=== PATIENT | male | born 1995 | race Two or more races ===

== ENCOUNTER 2017-07-08 01:48 | Inpatient (IN) | payer SELFPAY ==
[2017-07-08] VITALS (12 sets, daily range): BP systolic 108–144; BP diastolic 46–80
[~2017-07-08] VITALS: Ht 175.3 cm; Wt 86.2 kg
[2017-07-08] MEDS ORDERED: ONDANSETRON ODT 4 MG TAB.RAPDIS. PO ONE (02:15)
[2017-07-08] MEDS ORDERED: LIDO:MAALOX:DONNATAL 1:1:1 15 ML SINGLE DOSE SWSW ONE ×2 (02:30→02:45)
[2017-07-08] MEDS ORDERED: ONDANSETRON PF 4 MG/2 ML VIAL. ONE ×2 (02:31→09:04)
[2017-07-08 02:38] LABS: BASO # 0.1 x10^3/uL (0.0-0.2); BASO % 0 % (0-3); EOS % 1 % (0-3); HEMATOCRIT 44.3 % (39.0-53.0); HEMOGLOBIN 14.8 g/dL (13.0-17.5); LYMPH % 21 % (24-48); MEAN CORPUSCULAR HEMOGLOBIN 29 pg (25-35); MEAN CORPUSCULAR HGB CONC 33 g/dL (31-37); MEAN CORPUSCULAR VOLUME 87 fL (79-100); MONO % 7 % (0-9); NEUT % 71 % (31-73); PLATELET COUNT 263 x10^3/uL (140-400); RED BLOOD COUNT 5.07 x10^6/uL (4.30-5.70); RED CELL DISTRIBUTION WIDTH 13.3 % (11.5-14.5); WHITE BLOOD COUNT 13.8 x10^3/uL (4.0-11.0)
[2017-07-08] MEDS ORDERED: ONDANSETRON PF 4 MG/2 ML VIAL. IV ONE (02:45)
[2017-07-08] MEDS ORDERED: IV NORMAL SALINE 1000ML BAG 1,000 ML IV SCH (02:45)
[2017-07-08 02:46] LABS: CALCIUM 9.3 mg/dL (8.5-10.1); CREATININE 0.9 mg/dL (0.7-1.3); GFR 104.6; POTASSIUM 3.5 mmol/L (3.5-5.1)
--- NOTE | 2017-07-08 02:47 | PHYS DOC ---
Past Medical History Past Medical History: No Pertinent History Past Surgical History: No Surgical History Alcohol Use: None Drug Use: None Adult General Chief Complaint Chief Complaint: ABDOMINAL PAIN HPI HPI Patient is a 21 year old male who presents with complaint of upper abdominal pain and vomiting. Patient states that his symptoms started approximately 2 hours ago and have been persistent. Patient states that he had eaten [employer] earlier this evening and states proximal one hour after eating he started getting pain along the left side of his abdomen. Patient states this rapidly progressed into vomiting. The patient states currently he is having sharp pain in the middle upper portion of his abdomen. Patient has had numerous episodes of vomiting and has not been able to keep any fluids down. The patient currently rates his pain as 9 out of 10 on my evaluation. Patient denies any associated fevers and denies any known sick contacts. Patient denies any significant past medical history and has had no surgeries. Patient has not taken anything for his symptoms. Review of Systems Review of Systems Constitutional: Denies fever or chills [] Eyes: Denies change in visual acuity, redness, or eye pain [] HENT: Denies nasal congestion or sore throat [] Respiratory: Denies cough or shortness of breath [] Cardiovascular: Denies chest pain or edema[] GI: Abdominal pain, nausea, vomiting[] : Denies dysuria or hematuria [] Musculoskeletal: Denies back pain or joint pain [] Integument: Denies rash or skin lesions [] Neurologic: Denies headache, focal weakness or sensory changes [] All other systems were reviewed and found to be within normal limits, except as documented in this note. Current Medications Current Medications Current Medications Medications (Trade) Dose Ordered Sig/Chin Start Time Stop Time Status Last Admin Dose Admin Fentanyl Citrate (Fentanyl 2ml Vial) 50 mcg PRN Q15MIN PRN 07/08/17 02:45 07/09/17 02:44 07/08/17 05:49 50 MCG Info (Do NOT chart on this entry -- for MONITORING) 1 each PRN DAILY PRN 07/08/17 04:15 07/10/17 04:14 Iohexol (Omnipaque 300 Mg/ml) 75 ml 1X ONCE 07/08/17 04:15 07/08/17 04:16 DC 07/08/17 04:30 75 ML Multi-Ingredient Mouthwash/Gargle (Gi Cocktail Single Dose) 15 ml 1X ONCE 07/08/17 02:45 07/08/17 02:46 DC Ondansetron HCl (Zofran Odt) 8 mg 1X ONCE 07/08/17 02:15 07/08/17 02:16 Cancel Ondansetron HCl (Zofran) 4 mg 1X ONCE 07/08/17 02:45 07/08/17 02:46 DC 07/08/17 02:39 4 MG Sodium Chloride 1,000 ml @ 1,000 mls/hr Q1H 07/08/17 02:45 07/08/17 03:44 DC 07/08/17 02:38 1,000 MLS/HR Allergies Allergies Allergies Coded Allergies Type Severity Reaction Last Updated Verified No Known Drug Allergies 07/08/17 No Physical Exam Physical Exam Constitutional: Alert, afebrile, appears in moderate discomfort. [] HENT: Normocephalic, atraumatic, bilateral external ears normal, oropharynx moist, no oral exudates, nose normal. [] Eyes: PERRLA, EOMI, conjunctiva normal, no discharge. [] Neck: Normal range of motion, no tenderness, supple, no stridor. [] Cardiovascular:Heart rate regular rhythm, no murmur [] Lungs & Thorax: Bilateral breath sounds clear to auscultation [] Abdomen: Bowel sounds normal, soft, epigastric tenderness to palpation with guarding, no rebound tenderness, no masses, no pulsatile masses. [] Skin: Warm, dry, no erythema, no rash. [] Back: No tenderness, no CVA tenderness. [] Extremities: No tenderness, no cyanosis, no clubbing, ROM intact, no edema. [] Neurologic: Alert and oriented X 3, normal motor function, normal sensory function, no focal deficits noted. [] Current Patient Data Vital Signs Vital Signs Date Time Temp Pulse Resp B/P (MAP) Pulse Ox O2 Delivery O2 Flow Rate FiO2 07/08/17 04:29 86 22 132/67 (88) 97 Room Air 07/08/17 01:57 97.8 97.8 Lab Values Laboratory Tests Test 07/08/17 02:15 White Blood Count 13.8 x10^3/uL (4.0-11.0) H Red Blood Count 5.07 x10^6/uL (4.30-5.70) Hemoglobin 14.8 g/dL (13.0-17.5) Hematocrit 44.3 % (39.0-53.0) Mean Corpuscular Volume 87 fL (79-100) Mean Corpuscular Hemoglobin 29 pg (25-35) Mean Corpuscular Hemoglobin Concent 33 g/dL (31-37) Red Cell Distribution Width 13.3 % (11.5-14.5) Platelet Count 263 x10^3/uL (140-400) Neutrophils (%) (Auto) 71 % (31-73) Lymphocytes (%) (Auto) 21 % (24-48) L Monocytes (%) (Auto) 7 % (0-9) Eosinophils (%) (Auto) 1 % (0-3) Basophils (%) (Auto) 0 % (0-3) Neutrophils # (Auto) 9.8 x10^3uL (1.8-7.7) H Lymphocytes # (Auto) 3.0 x10^3/uL (1.0-4.8) Monocytes # (Auto) 1.0 x10^3/uL (0.0-1.1) Eosinophils # (Auto) 0.1 x10^3/uL (0.0-0.7) Basophils # (Auto) 0.1 x10^3/uL (0.0-0.2) Sodium Level 141 mmol/L (136-145) Potassium Level 3.5 mmol/L (3.5-5.1) Chloride Level 104 mmol/L (98-107) Carbon Dioxide Level 29 mmol/L (21-32) Anion Gap 8 (6-14) Blood Urea Nitrogen 16 mg/dL (8-26) Creatinine 0.9 mg/dL (0.7-1.3) Estimated GFR (Cockcroft-Gault) 104.6 BUN/Creatinine Ratio 18 (6-20) Glucose Level 118 mg/dL (70-99) H Calcium Level 9.3 mg/dL (8.5-10.1) Total Bilirubin 0.7 mg/dL (0.2-1.0) Aspartate Amino Transferase (AST) 19 U/L (15-37) Alanine Aminotransferase (ALT) 38 U/L (16-63) Alkaline Phosphatase 71 U/L (46-116) Total Protein 7.9 g/dL (6.4-8.2) Albumin 4.4 g/dL (3.4-5.0) Albumin/Globulin Ratio 1.3 (1.0-1.7) Lipase 99 U/L (73-393) Laboratory Tests 07/08/17 02:15 Laboratory Tests 07/08/17 02:15 EKG EKG Not performed[] Radiology/Procedures Radiology/Procedures [facility] [address] [place] [address] IMAGING REPORT Signed PATIENT: MUKESH GARCIA ACCOUNT: [id number] : 1995 LOCATION: ER AGE: 21 SEX: M EXAM STATUS: REG ER ORD. PHYSICIAN: DEBBY NARAYANAN MD REASON: upper abdominal pain PROCEDURE: CT ABD PELV W/ IV CONTRST ONLY INDICATION: upper abd pain after eating [employer] tonight; Omni 300, 75ml COMPARISON: None. TECHNIQUE: Axial CT images were obtained through the abdomen and pelvis with intravenous contrast. One or more of the following individualized dose reduction techniques were utilized for this examination: 1. Automated exposure control; 2. Adjustment of the mA and/or kV according to patient size; 3. Use of iterative reconstruction technique. FINDINGS: Chest Base: Partially imaged without gross abnormality. Vessels: No abdominal aortic aneurysm. Liver/Biliary: No intrahepatic biliary duct dilation. Pancreas: No peripancreatic edema. Spleen: Normal. Kidneys/Adrenal: No hydronephrosis. Bladder: Distended with urine at time of exam. GI: Blind-ending tubular structure right lower quadrant of the abdomen measuring approximately 12 mm with mild edema adjacent. This appears predominantly retrocecal in location IMPRESSION: 1. Findings concerning for early acute appendicitis. Please note the appendix is in a retrocecal location. Electronically signed by: Magy Cameron MD (07/08/2017 5:50 AM) [facility] DICTATED and SIGNED BY: MAGY CAMERON MD DATE: 07/08/17 0542 CC: DEBBY NARAYANAN MD; NO PCP ~ [] Course & Med Decision Making Course & Med Decision Making Pertinent Labs and Imaging studies reviewed. (See chart for details) Patient was given IV fluids, fentanyl, GI cocktail, and Zofran. Despite treatment the patient's pain did not improve. The patient thus underwent CT imaging. This CT scan showed a retrocecal early acute appendicitis. I spoke with Dr. Chen of general surgery who agreed to consult on patient in hospital and recommended that the patient be started on Zosyn which was done in the emergency department. Patient was admitted to Dr. Plascencia. Adriana Disclaimer Adriana Disclaimer This electronic medical record was generated, in whole or in part, using a voice recognition dictation system. Departure Departure Impression: Primary Impression: Acute appendicitis Disposition: 09 ADMITTED INPATIENT Admitting Physician: Milena Plascencia Condition: GUARDED Referrals: NO PCP (PCP) Problem Qualifiers Primary Impression: Acute appendicitis Acute appendicitis type: unspecified acute appendicitis type Qualified Codes : K35.80 - Unspecified acute appendicitis DEBBY NARAYANAN MD Jul 08, 2017 02:47
[2017-07-08 02:54] LABS: ALBUMIN 4.4 g/dL (3.4-5.0); ALBUMIN/GLOBULIN RATIO 1.3 (1.0-1.7); TOTAL BILIRUBIN 0.7 mg/dL (0.2-1.0); TOTAL PROTEIN 7.9 g/dL (6.4-8.2)
[2017-07-08] MEDS: fentaNYL PF VIAL 100 MCG/2 ML VIAL IV PRN ×3 (02:55→05:49)
[2017-07-08] MEDS ORDERED: CONTRAST GIVEN MC PRN (04:15)
[2017-07-08] MEDS ORDERED: IOHEXOL 300 MG/ML 100ML VIAL. IV ONE (04:15)
--- NOTE | 2017-07-08 05:54 | RAD ---
INDICATION: upper abd pain after eating [employer] tonight; Omni 300, 75ml COMPARISON: None. TECHNIQUE: Axial CT images were obtained through the abdomen and pelvis with intravenous contrast. One or more of the following individualized dose reduction techniques were utilized for this examination: 1. Automated exposure control; 2. Adjustment of the mA and/or kV according to patient size; 3. Use of iterative reconstruction technique. FINDINGS: Chest Base: Partially imaged without gross abnormality. Vessels: No abdominal aortic aneurysm. Liver/Biliary: No intrahepatic biliary duct dilation. Pancreas: No peripancreatic edema. Spleen: Normal. Kidneys/Adrenal: No hydronephrosis. Bladder: Distended with urine at time of exam. GI: Blind-ending tubular structure right lower quadrant of the abdomen measuring approximately 12 mm with mild edema adjacent. This appears predominantly retrocecal in location IMPRESSION: 1. Findings concerning for early acute appendicitis. Please note the appendix is in a retrocecal location. Electronically signed by: David Holloway MD (07/08/2017 5:50 AM) [facility]
[2017-07-08] MEDS ORDERED: fentaNYL PF VIAL 100 MCG/2 ML VIAL IV PRN ×6 (06:45→08:15)
[2017-07-08] MEDS ORDERED: ONDANSETRON PF 4 MG/2 ML VIAL. IV PRN ×3 (06:45→11:00)
[2017-07-08] MEDS: IV NORMAL SALINE 1000ML BAG 1,000 ML IV SCH ×3 (07:23→22:45)
[2017-07-08] MEDS ORDERED: MIDAZOLAM HCL/PF 2 MG/2 ML VIAL. IV PRN (08:15)
[2017-07-08] MEDS ORDERED: LIDOCAINE 1% PF 2 ML VIAL. ID PRN ×2 (08:15)
[2017-07-08] MEDS ORDERED: IV RINGERS,LACTATED 1000ML 1,000 ML IV SCH (08:15)
[2017-07-08] MEDS: IV RINGERS,LACTATED 1000ML 1,000 ML IV SCH ×2 (08:15→16:15)
[2017-07-08] MEDS ORDERED: HYDROmorphone 2 MG/ML VIAL IV PRN (08:15)
[2017-07-08] MEDS ORDERED: PROCHLORPERAZINE 10 MG/2 ML VIAL. IV PRN (08:15)
[2017-07-08] MEDS ORDERED: MORPHINE SULFATE 2 MG/ML DISP.SYRIN. IV PRN (08:15)
--- NOTE | 2017-07-08 08:24 | PDOC1 ---
History and Physical Date of Admission Date of Admission DATE: 07/08/17 TIME: 08:21 Identification/Chief Complaint Chief Complaint Abd pain Problems: Source Source: Patient History of Present Illness History of Present Illness 21 yo male with 12 hour history of abdominal pain RLQ. Has had nausea but no vomiting Past Medical History Cardiovascular: No pertinent hx Pulmonary: No pertinent hx GI: No pertinent hx Heme/Onc: No pertinent hx Hepatobiliary: No pertinent hx Psych: No pertinent hx Rheumatologic: No pertinent hx Infectious disease: No pertinent hx ENT: No pertinent hx Renal/: No pertinent hx Endocrine: No pertinent hx Dermatology: No pertinent hx Past Surgical History Past Surgical History: No pertinent history Family History Family History: No Significant Social History Smoke: No ALCOHOL: rare Drugs: None Current Problem List Problem List Problems Medical Problems: (1) Acute appendicitis Status: Acute Problems: Current Medications Current Medications Current Medications Ondansetron HCl (Zofran Odt) 8 mg 1X ONCE PO ; Start 07/08/17 at 02:15; Stop 07/08/17 at 02:16; Status Cancel Multi-Ingredient Mouthwash/Gargle (Gi Cocktail Single Dose) 15 ml 1X ONCE SWSW Last administered on 07/08/17 02:55; Start 07/08/17 at 02:30; Stop 07/08/17 at 02:31; Status DC Ondansetron HCl (Zofran) 4 mg STK-MED ONCE .ROUTE ; Start 07/08/17 at 02:31; Stop 07/08/17 at 02:32; Status DC Multi-Ingredient Mouthwash/Gargle (Gi Cocktail Single Dose) 15 ml 1X ONCE SWSW ; Start 07/08/17 at 02:45; Stop 07/08/17 at 02:46; Status DC Sodium Chloride 1,000 ml @ 1,000 mls/hr Q1H IV Last administered on 07/08/17 02:38; Start 07/08/17 at 02:45; Stop 07/08/17 at 03:44; Status DC Ondansetron HCl (Zofran) 4 mg 1X ONCE IV Last administered on 07/08/17 02:39 ; Start 07/08/17 at 02:45; Stop 07/08/17 at 02:46; Status DC Fentanyl Citrate (Fentanyl 2ml Vial) 50 mcg PRN Q15MIN PRN IV PAIN GREATER THAN 3/10 Last administered on 07/08/17 05:49; Start 07/08/17 at 02:45; Stop 07/09/17 at 02:44 Iohexol (Omnipaque 300 Mg/ml) 75 ml 1X ONCE IV Last administered on 07/08/17 04:30; Start 07/08/17 at 04:15; Stop 07/08/17 at 04:16; Status DC Info (Do NOT chart on this entry -- for MONITORING) 1 each PRN DAILY PRN MC SEE COMMENTS; Start 07/08/17 at 04:15; Stop 07/10/17 at 04:14 Ondansetron HCl (Zofran) 4 mg PRN Q8HRS PRN IV NAUSEA/VOMITING; Start 07/08/17 at 06:45; Stop 07/09/17 at 06:44 Fentanyl Citrate (Fentanyl 2ml Vial) 50 mcg PRN Q2HR PRN IV PAIN; Start at 06:45; Stop 07/09/17 at 06:44 Sodium Chloride 1,000 ml @ 125 mls/hr Q8H IV Last administered on 07/08/17 07 :23; Start 07/08/17 at 06:45; Stop 07/09/17 at 06:44 Midazolam HCl (Versed) 2 mg PRN 1X PRN IV PRIOR TO PROCEDURE; Start 07/08/17 at 08:15; Stop 07/09/17 at 08:14; Status UNV Fentanyl Citrate (Fentanyl 2ml Vial) 25 mcg PRN Q5MIN PRN IV X 2 DOSES FOR PAIN ; Start 07/08/17 at 08:15; Stop 07/09/17 at 08:14; Status UNV Fentanyl Citrate (Fentanyl 2ml Vial) 50 mcg PRN Q5MIN PRN IV X 2 DOSES FOR PAIN ; Start 07/08/17 at 08:15; Stop 07/09/17 at 08:14; Status UNV Ringer's Solution 1,000 ml @ 125 mls/hr Q8H IV ; Start 07/08/17 at 08:15; Stop 07/08/17 at 20:14; Status UNV Lidocaine HCl (Xylocaine-Mpf 1% Vial) 2 ml 1X PRN PRN ID IV START; Start at 08:15; Stop 07/09/17 at 08:14; Status UNV Ondansetron HCl (Zofran) 4 mg PRN Q6HRS PRN IV NAUSEA/VOMITING; Start 07/08/17 at 08:15; Stop 07/09/17 at 08:14; Status UNV Fentanyl Citrate (Fentanyl 2ml Vial) 25 mcg PRN Q5MIN PRN IV MILD PAIN; Start 07/08/17 at 08:15; Stop 07/09/17 at 08:14; Status UNV Fentanyl Citrate (Fentanyl 2ml Vial) 50 mcg PRN Q5MIN PRN IV MODERATE PAIN; Start 07/08/17 at 08:15; Stop 07/09/17 at 08:14; Status UNV Morphine Sulfate 1 mg PRN Q10MIN PRN IV SEVERE PAIN; Start 07/08/17 at 08:15; Stop 07/09/17 at 08:14; Status UNV Ringer's Solution 1,000 ml @ 30 mls/hr Q24H IV ; Start 07/08/17 at 08:15; Stop 07/08/17 at 20:14; Status UNV Lidocaine HCl (Xylocaine-Mpf 1% Vial) 2 ml 1X PRN PRN ID IV START; Start at 08:15; Stop 07/09/17 at 08:14; Status UNV Hydromorphone HCl (Dilaudid) 0.5 mg PRN Q10MIN PRN IV SEV PAIN, Second choice; Start 07/08/17 at 08:15; Stop 07/09/17 at 08:14; Status UNV Prochlorperazine Edisylate (Compazine) 5 mg PACU PRN PRN IV NAUSEA, MRX1; Start 07/08/17 at 08:15; Stop 07/09/17 at 08:14; Status UNV Fentanyl Citrate (Fentanyl 2ml Vial) 50 mcg PACU PRN PRN IV PAIN; Start at 08:00; Status UNV Piperacillin Sod/ Tazobactam Sod 3.375 gm/Dextrose 50 ml @ 100 mls/hr 1X ONCE IV ; Start 07/08/17 at 08:30; Stop 07/08/17 at 08:59; Status UNV Allergies Allergies: Coded Allergies: No Known Drug Allergies (Unverified , 07/08/17) ROS Gastrointestinal: Yes Nausea, Yes Abdominal Pain Physical Exam General: Alert, Oriented X3, Cooperative, mild distress HEENT: Atraumatic, EOMI Lungs: Clear to auscultation, Normal air movement Heart: RRR, no murmurs Abdomen: Normal bowel sounds, Soft, Other (TTP RLQ) Rectal Exam: not examined Extremities: No clubbing, No cyanosis, No edema Skin: No significant lesion Neuro: Normal speech Psych/Mental Status: Mental status NL Vitals Vitals Vital Signs Date Time Temp Pulse Resp B/P (MAP) Pulse Ox O2 Delivery O2 Flow Rate FiO2 07/08/17 07:58 98.3 89 24 140/69 98 Room Air 98.3 Labs Labs Laboratory Tests Test 07/08/17 02:15 White Blood Count 13.8 x10^3/uL (4.0-11.0) Red Blood Count 5.07 x10^6/uL (4.30-5.70) Hemoglobin 14.8 g/dL (13.0-17.5) Hematocrit 44.3 % (39.0-53.0) Mean Corpuscular Volume 87 fL (79-100) Mean Corpuscular Hemoglobin 29 pg (25-35) Mean Corpuscular Hemoglobin Concent 33 g/dL (31-37) Red Cell Distribution Width 13.3 % (11.5-14.5) Platelet Count 263 x10^3/uL (140-400) Neutrophils (%) (Auto) 71 % (31-73) Lymphocytes (%) (Auto) 21 % (24-48) Monocytes (%) (Auto) 7 % (0-9) Eosinophils (%) (Auto) 1 % (0-3) Basophils (%) (Auto) 0 % (0-3) Neutrophils # (Auto) 9.8 x10^3uL (1.8-7.7) Lymphocytes # (Auto) 3.0 x10^3/uL (1.0-4.8) Monocytes # (Auto) 1.0 x10^3/uL (0.0-1.1) Eosinophils # (Auto) 0.1 x10^3/uL (0.0-0.7) Basophils # (Auto) 0.1 x10^3/uL (0.0-0.2) Sodium Level 141 mmol/L (136-145) Potassium Level 3.5 mmol/L (3.5-5.1) Chloride Level 104 mmol/L (98-107) Carbon Dioxide Level 29 mmol/L (21-32) Anion Gap 8 (6-14) Blood Urea Nitrogen 16 mg/dL (8-26) Creatinine 0.9 mg/dL (0.7-1.3) Estimated GFR (Cockcroft-Gault) 104.6 BUN/Creatinine Ratio 18 (6-20) Glucose Level 118 mg/dL (70-99) Calcium Level 9.3 mg/dL (8.5-10.1) Total Bilirubin 0.7 mg/dL (0.2-1.0) Aspartate Amino Transf (AST/SGOT) 19 U/L (15-37) Alanine Aminotransferase (ALT/SGPT) 38 U/L (16-63) Alkaline Phosphatase 71 U/L (46-116) Total Protein 7.9 g/dL (6.4-8.2) Albumin 4.4 g/dL (3.4-5.0) Albumin/Globulin Ratio 1.3 (1.0-1.7) Lipase 99 U/L (73-393) Laboratory Tests Test 07/08/17 02:15 White Blood Count 13.8 x10^3/uL (4.0-11.0) Red Blood Count 5.07 x10^6/uL (4.30-5.70) Hemoglobin 14.8 g/dL (13.0-17.5) Hematocrit 44.3 % (39.0-53.0) Mean Corpuscular Volume 87 fL (79-100) Mean Corpuscular Hemoglobin 29 pg (25-35) Mean Corpuscular Hemoglobin Concent 33 g/dL (31-37) Red Cell Distribution Width 13.3 % (11.5-14.5) Platelet Count 263 x10^3/uL (140-400) Neutrophils (%) (Auto) 71 % (31-73) Lymphocytes (%) (Auto) 21 % (24-48) Monocytes (%) (Auto) 7 % (0-9) Eosinophils (%) (Auto) 1 % (0-3) Basophils (%) (Auto) 0 % (0-3) Neutrophils # (Auto) 9.8 x10^3uL (1.8-7.7) Lymphocytes # (Auto) 3.0 x10^3/uL (1.0-4.8) Monocytes # (Auto) 1.0 x10^3/uL (0.0-1.1) Eosinophils # (Auto) 0.1 x10^3/uL (0.0-0.7) Basophils # (Auto) 0.1 x10^3/uL (0.0-0.2) Sodium Level 141 mmol/L (136-145) Potassium Level 3.5 mmol/L (3.5-5.1) Chloride Level 104 mmol/L (98-107) Carbon Dioxide Level 29 mmol/L (21-32) Anion Gap 8 (6-14) Blood Urea Nitrogen 16 mg/dL (8-26) Creatinine 0.9 mg/dL (0.7-1.3) Estimated GFR (Cockcroft-Gault) 104.6 BUN/Creatinine Ratio 18 (6-20) Glucose Level 118 mg/dL (70-99) Calcium Level 9.3 mg/dL (8.5-10.1) Total Bilirubin 0.7 mg/dL (0.2-1.0) Aspartate Amino Transf (AST/SGOT) 19 U/L (15-37) Alanine Aminotransferase (ALT/SGPT) 38 U/L (16-63) Alkaline Phosphatase 71 U/L (46-116) Total Protein 7.9 g/dL (6.4-8.2) Albumin 4.4 g/dL (3.4-5.0) Albumin/Globulin Ratio 1.3 (1.0-1.7) Lipase 99 U/L (73-393) Images Images CT of the abd showing inflammed appendix no abscess VTE Prophylaxis Ordered VTE Prophylaxis Devices: Yes VTE Pharmacological Prophylaxi: Contraindicated Assessment/Plan Assessment/Plan Acute appendicitis Plan L/S Appendectomy WILFRIDO SILVA MD Jul 08, 2017 8:24 am
[2017-07-08] MEDS ORDERED: PIPERACILLIN/TAZO IV Push 3.375 GM VIAL. IVP ONE (08:30)
[2017-07-08] MEDS ORDERED: PIPERACILLIN/TAZOBACTAM 3.375 GM in IV DEXTROSE 5% 50 ML IV ONE (08:30)
[2017-07-08] MEDS ORDERED: ROCURONIUM 50 MG/5 ML VIAL. ONE (09:03)
[2017-07-08] MEDS ORDERED: SEVOFLURANE 61 TO 120 MINUTES. IH ONE (09:04)
[2017-07-08] MEDS ORDERED: KETOROLAC 30 MG/ML INJ FOR OR. INJ ONE (09:04)
[2017-07-08] MEDS ORDERED: DEXAMETHASONE SOD PHOS 20 MG/5 ML VIAL. ONE (09:04)
[2017-07-08] MEDS ORDERED: fentaNYL PF VIAL 100 MCG/2 ML VIAL ONE (09:04)
[2017-07-08] MEDS ORDERED: LIDOCAINE 2% PF Vial for OR 5 ML VIAL. ONE (09:04)
[2017-07-08] MEDS ORDERED: PROPOFOL 20 ML IV ONE (09:04)
[2017-07-08] MEDS ORDERED: MIDAZOLAM HCL/PF 2 MG/2 ML VIAL. ONE (09:04)
[2017-07-08] MEDS ORDERED: BUPIVACAINE-EPI 0.25%-1:200000 50 ML VIAL. ONE (09:38)
[2017-07-08] MEDS ORDERED: MORPHINE SULFATE 10 MG/ML VIAL. ONE (10:12)
--- NOTE | 2017-07-08 10:46 | PDOC4 ---
Operative Note Operative Note Date: 07/08/2017 Preoperative diagnosis: Acute appendicitis Postoperative diagnosis: Same Procedure: Laparoscopic appendectomy Surgeon: Gustavo Specimen: Appendix Dictation: Patient is a 21-year-old male was met in the hospital with right lower quadrant abdominal pain and CT scan findings consistent with acute appendicitis. Procedure lap scopic appendectomy was explained to the patient detail was benefits were also discussed including bleeding infection injury to intra-abdominal contents possibly necessitating further or open operations. The patient seemed understanding gave both verbal and written consent to have the procedure performed. Patient was taken to the operating room placed the supine position general anesthesia was initiated once patient was asleep and intubated his abdomen was prepped and draped usual sterile fashion using ChloraPrep. An area at the umbilicus was injected with quarter percent Marcaine with epinephrine incisions made lead blade scalpel varies needle was placed within the abdomen and a pneumoperitoneum was achieved once this complete a 12 mm port was placed in fibromata camera was placed within the abdomen abdomen was inspected no other at maladies were noted was noted to appendix was inflamed and adherent to the lateral abdominal wall. I'm OmegaPort's were placed under direct visualization the appendix was grasped retracted towards anterior abdominal wall a window was propagated at the base the appendix through the mesoappendix with a [place] dissector and Endo JACOB stapler was used to staple and transect the base the appendix. The tip of the appendix was adherent to the lateral abdominal wall these adhesions were taken down with sharp dissection. The mesoappendix was stapled and transected with an Endo JACOB stapler. There was one small bleeder along the staple line and this was clipped with a 10 mm clip. The appendix was then placed in Endo Catch bag and removed from the umbilicus the right lower quadrant right abdominal gutter were all irrigated and suctioned dry hemostasis didn't be appropriate at that time and the pneumoperitoneum was reduced all ports removed fascial defect at the umbilicus closed [id number] Vicryl suture and skin was repacked made all port sites 4 septic or Monocryl Mastisol Steri-Strips and Band-Aids were applied as dressings. The patient was waken expanded in the operating room taken recovery in stable condition all sponge instrument needle counts listed as correct estimated blood loss 20 mL. WILFRIDO SILVA MD Jul 08, 2017 10:46
[2017-07-08] MEDS ORDERED: oxyCODONE/APAP 5/325 1 TAB TABLET PO PRN (11:00)
[2017-07-08] MEDS: KETOROLAC 15 MG/ML VIAL. IV SCH ×2 (12:00→18:29)
--- NOTE | 2017-07-08 12:33 | PDOC1 ---
History and Physical Date of Admission Date of Admission 07/08/17 Identification/Chief Complaint Chief Complaint abdominal pain Problems: Source Source: Patient History of Present Illness History of Present Illness This is a 21 y/o M who presented to the ER with acute abdominal pain. He was found to have acute appendicitis. General surgery was consulted, and his appendix was removed this morning. He has returned from the OR. Pain is currently 3-4/10. He denies any chest pain or nausea since the surgery. He hasn' t eaten yet. He does not take any medications at home. Past Medical History Cardiovascular: No pertinent hx Pulmonary: No pertinent hx GI: No pertinent hx Heme/Onc: No pertinent hx Hepatobiliary: No pertinent hx Psych: No pertinent hx Rheumatologic: No pertinent hx Infectious disease: No pertinent hx ENT: No pertinent hx Renal/: No pertinent hx Endocrine: No pertinent hx Dermatology: No pertinent hx Past Surgical History Past Surgical History: No pertinent history Family History Family History: No Significant Social History Smoke: No ALCOHOL: rare Drugs: None Current Problem List Problem List Problems Medical Problems: (1) Acute appendicitis Status: Acute Current Medications Current Medications Current Medications Medications (Trade) Dose Ordered Sig/Chin Start Time Stop Time Status Last Admin Dose Admin Bupivacaine HCl/ Epinephrine Bitart (Marcaine-Epi 0.25%-[id number]) 50 ml STK-MED ONCE 07/08/17 09:38 07/08/17 09:39 DC 07/08/17 10:04 10 ML Dexamethasone Sodium Phosphate (Decadron) 20 mg STK-MED ONCE 07/08/17 09:04 07/08/17 09:05 DC Fentanyl Citrate (Fentanyl 2ml Vial) 100 mcg STK-MED ONCE 07/08/17 09:04 07/08/17 09:05 DC Hydromorphone HCl (Dilaudid) 0.5 mg PRN Q10MIN PRN 07/08/17 08:15 07/09/17 08:14 Info (Do NOT chart on this entry -- for MONITORING) 1 each PRN DAILY PRN 07/08/17 04:15 07/10/17 04:14 Iohexol (Omnipaque 300 Mg/ml) 75 ml 1X ONCE 07/08/17 04:15 07/08/17 04:16 DC 07/08/17 04:30 75 ML Ketorolac Tromethamine (Toradol For Or Only) 30 mg STK-MED ONCE 07/08/17 09:04 07/08/17 09:05 DC Ketorolac Tromethamine (Toradol) 15 mg Q6HRS 07/08/17 12:00 07/10/17 11:59 Lidocaine HCl (Lidocaine Pf 2% Vial) 5 ml STK-MED ONCE 07/08/17 09:04 07/08/17 09:05 DC Lidocaine HCl (Xylocaine-Mpf 1% Vial) 2 ml 1X PRN PRN 07/08/17 08:15 07/09/17 08:14 Midazolam HCl (Versed) 2 mg STK-MED ONCE 07/08/17 09:04 07/08/17 09:05 DC Morphine Sulfate 10 mg STK-MED ONCE 07/08/17 10:12 07/08/17 10:13 DC Multi-Ingredient Mouthwash/Gargle (Gi Cocktail Single Dose) 15 ml 1X ONCE 07/08/17 02:45 07/08/17 02:46 DC Ondansetron HCl (Zofran Odt) 8 mg 1X ONCE 07/08/17 02:15 07/08/17 02:16 Cancel Ondansetron HCl (Zofran) 4 mg PRN Q6HRS PRN 07/08/17 11:00 Oxycodone/ Acetaminophen (Percocet 5/325) 2 tab PRN Q4HRS PRN 07/08/17 11:00 Piperacillin Sod/ Tazobactam Sod (Zosyn) 3.375 gm 1X ONCE 07/08/17 08:30 07/08/17 08:31 DC 07/08/17 08:32 3.375 GM Piperacillin Sod/ Tazobactam Sod 3.375 gm/Dextrose 50 ml @ 100 mls/hr 1X ONCE 07/08/17 08:30 07/08/17 08:59 UNV Prochlorperazine Edisylate (Compazine) 5 mg PACU PRN PRN 07/08/17 08:15 07/09/17 08:14 Propofol 20 ml @ As Directed STK-MED ONCE 07/08/17 09:04 07/08/17 09:05 DC Ringer's Solution 1,000 ml @ 30 mls/hr Q24H 07/08/17 08:15 07/08/17 20:14 Rocuronium [place] (Zemuron) 50 mg STK-MED ONCE 07/08/17 09:03 07/08/17 09:04 DC Sevoflurane (Ultane) 60 ml STK-MED ONCE 07/08/17 09:04 07/08/17 09:05 DC Sodium Chloride 1,000 ml @ 125 mls/hr Q8H 07/08/17 06:45 07/09/17 06:44 07/08/17 07:23 125 MLS/HR Allergies Allergies Allergies Coded Allergies Type Severity Reaction Last Updated Verified No Known Drug Allergies 07/08/17 No ROS Review of System CONSTITUTIONAL: No fever or chills EYES: No recent changes SKIN: No rash or itching CARDIOVASCULAR: No chest pain, syncope, palpitations, or edema RESPIRATORY: No SOB or cough GASTROINTESTINAL: +abdominal pain, periumbilical NEUROLOGICAL: No headaches or weakness ENDOCRINE: No cold or heat intolerance GENITOURINARY: No urgency or frequency of urination MUSCULOSKELETAL: No back pain or joint pain LYMPHATICS: No enlarged lymph nodes PSYCHIATRIC: No anxiety or depression Physical Exam Physical Exam GEN.: No apparent distress. groggy HEENT: Head is normocephalic, atraumatic NECK: Supple. LUNGS: Clear to auscultation. HEART: RRR, S1, S2 present. ABDOMEN: slight distention, 4 small dressings are c/d/i EXTREMITIES: Without any cyanosis. NEUROLOGIC: Normal speech, normal tone PSYCHIATRIC: Normal affect, normal mood. SKIN: No ulcerations Vitals Vitals Vital Signs Date Time Temp Pulse Resp B/P (MAP) Pulse Ox O2 Delivery O2 Flow Rate FiO2 07/08/17 11:57 97.9 89 18 114/46 (68) 98 Room Air 97.9 07/08/17 11:02 10 Labs Labs Laboratory Tests Test 07/08/17 02:15 White Blood Count 13.8 x10^3/uL (4.0-11.0) Red Blood Count 5.07 x10^6/uL (4.30-5.70) Hemoglobin 14.8 g/dL (13.0-17.5) Hematocrit 44.3 % (39.0-53.0) Mean Corpuscular Volume 87 fL (79-100) Mean Corpuscular Hemoglobin 29 pg (25-35) Mean Corpuscular Hemoglobin Concent 33 g/dL (31-37) Red Cell Distribution Width 13.3 % (11.5-14.5) Platelet Count 263 x10^3/uL (140-400) Neutrophils (%) (Auto) 71 % (31-73) Lymphocytes (%) (Auto) 21 % (24-48) Monocytes (%) (Auto) 7 % (0-9) Eosinophils (%) (Auto) 1 % (0-3) Basophils (%) (Auto) 0 % (0-3) Neutrophils # (Auto) 9.8 x10^3uL (1.8-7.7) Lymphocytes # (Auto) 3.0 x10^3/uL (1.0-4.8) Monocytes # (Auto) 1.0 x10^3/uL (0.0-1.1) Eosinophils # (Auto) 0.1 x10^3/uL (0.0-0.7) Basophils # (Auto) 0.1 x10^3/uL (0.0-0.2) Sodium Level 141 mmol/L (136-145) Potassium Level 3.5 mmol/L (3.5-5.1) Chloride Level 104 mmol/L (98-107) Carbon Dioxide Level 29 mmol/L (21-32) Anion Gap 8 (6-14) Blood Urea Nitrogen 16 mg/dL (8-26) Creatinine 0.9 mg/dL (0.7-1.3) Estimated GFR (Cockcroft-Gault) 104.6 BUN/Creatinine Ratio 18 (6-20) Glucose Level 118 mg/dL (70-99) Calcium Level 9.3 mg/dL (8.5-10.1) Total Bilirubin 0.7 mg/dL (0.2-1.0) Aspartate Amino Transf (AST/SGOT) 19 U/L (15-37) Alanine Aminotransferase (ALT/SGPT) 38 U/L (16-63) Alkaline Phosphatase 71 U/L (46-116) Total Protein 7.9 g/dL (6.4-8.2) Albumin 4.4 g/dL (3.4-5.0) Albumin/Globulin Ratio 1.3 (1.0-1.7) Lipase 99 U/L (73-393) Laboratory Tests Test 07/08/17 02:15 White Blood Count 13.8 x10^3/uL (4.0-11.0) Red Blood Count 5.07 x10^6/uL (4.30-5.70) Hemoglobin 14.8 g/dL (13.0-17.5) Hematocrit 44.3 % (39.0-53.0) Mean Corpuscular Volume 87 fL (79-100) Mean Corpuscular Hemoglobin 29 pg (25-35) Mean Corpuscular Hemoglobin Concent 33 g/dL (31-37) Red Cell Distribution Width 13.3 % (11.5-14.5) Platelet Count 263 x10^3/uL (140-400) Neutrophils (%) (Auto) 71 % (31-73) Lymphocytes (%) (Auto) 21 % (24-48) Monocytes (%) (Auto) 7 % (0-9) Eosinophils (%) (Auto) 1 % (0-3) Basophils (%) (Auto) 0 % (0-3) Neutrophils # (Auto) 9.8 x10^3uL (1.8-7.7) Lymphocytes # (Auto) 3.0 x10^3/uL (1.0-4.8) Monocytes # (Auto) 1.0 x10^3/uL (0.0-1.1) Eosinophils # (Auto) 0.1 x10^3/uL (0.0-0.7) Basophils # (Auto) 0.1 x10^3/uL (0.0-0.2) Sodium Level 141 mmol/L (136-145) Potassium Level 3.5 mmol/L (3.5-5.1) Chloride Level 104 mmol/L (98-107) Carbon Dioxide Level 29 mmol/L (21-32) Anion Gap 8 (6-14) Blood Urea Nitrogen 16 mg/dL (8-26) Creatinine 0.9 mg/dL (0.7-1.3) Estimated GFR (Cockcroft-Gault) 104.6 BUN/Creatinine Ratio 18 (6-20) Glucose Level 118 mg/dL (70-99) Calcium Level 9.3 mg/dL (8.5-10.1) Total Bilirubin 0.7 mg/dL (0.2-1.0) Aspartate Amino Transf (AST/SGOT) 19 U/L (15-37) Alanine Aminotransferase (ALT/SGPT) 38 U/L (16-63) Alkaline Phosphatase 71 U/L (46-116) Total Protein 7.9 g/dL (6.4-8.2) Albumin 4.4 g/dL (3.4-5.0) Albumin/Globulin Ratio 1.3 (1.0-1.7) Lipase 99 U/L (73-393) VTE Prophylaxis Ordered VTE Prophylaxis Devices: Yes VTE Pharmacological Prophylaxi: No Assessment/Plan Assessment/Plan Acute abdominal pain Acute appendicitis Leukocytosis Plan: s/p appendectomy POD 0 continue inpt care for post-op care, pain control, vitals monitoring, and repeat labs in the AM to ensure trend down in WBCs diet per surgeon anticipate discharge home tomorrow d/w nurse GASTON VALENTE MD Jul 08, 2017 12:33
[2017-07-08] MEDS: oxyCODONE/APAP 5/325 1 TAB TABLET PO PRN (14:37)
[2017-07-08] MEDS ORDERED: IV NORMAL SALINE 500ML BAG 500 ML IV ONE (15:30)
[2017-07-09] MEDS: oxyCODONE/APAP 5/325 1 TAB TABLET PO PRN ×2 (02:57→08:22)
[2017-07-09 03:31] VITALS: BP 97/67
[2017-07-09 05:20] LABS: BASO % 0 % (0-3); EOS % 0 % (0-3); HEMATOCRIT 29.7 % (39.0-53.0); HEMOGLOBIN 9.9 g/dL (13.0-17.5); LYMPH # 2.3 x10^3/uL (1.0-4.8); LYMPH % 20 % (24-48); MEAN CORPUSCULAR HEMOGLOBIN 29 pg (25-35); MEAN CORPUSCULAR HGB CONC 33 g/dL (31-37); MEAN CORPUSCULAR VOLUME 88 fL (79-100); MONO % 9 % (0-9); NEUT % 70 % (31-73); PLATELET COUNT 222 x10^3/uL (140-400); RED BLOOD COUNT 3.37 x10^6/uL (4.30-5.70); RED CELL DISTRIBUTION WIDTH 13.6 % (11.5-14.5); WHITE BLOOD COUNT 11.2 x10^3/uL (4.0-11.0)
[2017-07-09 05:53] LABS: CALCIUM 8.2 mg/dL (8.5-10.1); CREATININE 0.8 mg/dL (0.7-1.3); GFR 119.8; POTASSIUM 3.5 mmol/L (3.5-5.1)
[2017-07-09] MEDS: KETOROLAC 15 MG/ML VIAL. IV SCH ×3 (06:00→12:18)
[2017-07-09 07:00] VITALS: BP 132/60
--- NOTE | 2017-07-09 09:52 | PDOC ---
PROGRESS NOTES Subjective Subjective doing well, feeling better Objective Objective Vital Signs Date Time Temp Pulse Resp B/P (MAP) Pulse Ox O2 Delivery O2 Flow Rate FiO2 07/09/17 08:22 20 99 Room Air 07/09/17 07:00 97.7 98 132/60 (84) 97.7 07/08/17 11:02 10 Intake and Output 07/09/17 07:00 Intake Total 3300 ml Output Total 1950 ml Balance 1350 ml Intake Oral 1600 ml IV Total 1700 ml Output Urine Total 1900 ml Estimated Blood Loss 50 ml # Voids 5 Physical Exam Physical Exam abdomen soft Assessment Assessment Problems Medical Problems: (1) Acute appendicitis Status: Acute Plan Plan of Care OK to discharge, FU with Dr Chen in 2 weeks Comment Review of Relevant I have reviewed the following items beau (where applicable) has been applied. Labs Laboratory Tests Test 07/08/17 02:15 07/09/17 04:00 07/09/17 04:20 White Blood Count 13.8 x10^3/uL (4.0-11.0) 11.2 x10^3/uL (4.0-11.0) Red Blood Count 5.07 x10^6/uL (4.30-5.70) 3.37 x10^6/uL (4.30-5.70) Hemoglobin 14.8 g/dL (13.0-17.5) 9.9 g/dL (13.0-17.5) Hematocrit 44.3 % (39.0-53.0) 29.7 % (39.0-53.0) Mean Corpuscular Volume 87 fL (79-100) 88 fL (79-100) Mean Corpuscular Hemoglobin 29 pg (25-35) 29 pg (25-35) Mean Corpuscular Hemoglobin Concent 33 g/dL (31-37) 33 g/dL (31-37) Red Cell Distribution Width 13.3 % (11.5-14.5) 13.6 % (11.5-14.5) Platelet Count 263 x10^3/uL (140-400) 222 x10^3/uL (140-400) Neutrophils (%) (Auto) 71 % (31-73) 70 % (31-73) Lymphocytes (%) (Auto) 21 % (24-48) 20 % (24-48) Monocytes (%) (Auto) 7 % (0-9) 9 % (0-9) Eosinophils (%) (Auto) 1 % (0-3) 0 % (0-3) Basophils (%) (Auto) 0 % (0-3) 0 % (0-3) Neutrophils # (Auto) 9.8 x10^3uL (1.8-7.7) 7.8 x10^3uL (1.8-7.7) Lymphocytes # (Auto) 3.0 x10^3/uL (1.0-4.8) 2.3 x10^3/uL (1.0-4.8) Monocytes # (Auto) 1.0 x10^3/uL (0.0-1.1) 1.0 x10^3/uL (0.0-1.1) Eosinophils # (Auto) 0.1 x10^3/uL (0.0-0.7) 0.0 x10^3/uL (0.0-0.7) Basophils # (Auto) 0.1 x10^3/uL (0.0-0.2) 0.0 x10^3/uL (0.0-0.2) Sodium Level 141 mmol/L (136-145) 139 mmol/L (136-145) Potassium Level 3.5 mmol/L (3.5-5.1) 3.5 mmol/L (3.5-5.1) Chloride Level 104 mmol/L (98-107) 105 mmol/L (98-107) Carbon Dioxide Level 29 mmol/L (21-32) 27 mmol/L (21-32) Anion Gap 8 (6-14) 7 (6-14) Blood Urea Nitrogen 16 mg/dL (8-26) 9 mg/dL (8-26) Creatinine 0.9 mg/dL (0.7-1.3) 0.8 mg/dL (0.7-1.3) Estimated GFR (Cockcroft-Gault) 104.6 119.8 BUN/Creatinine Ratio 18 (6-20) Glucose Level 118 mg/dL (70-99) 109 mg/dL (70-99) Calcium Level 9.3 mg/dL (8.5-10.1) 8.2 mg/dL (8.5-10.1) Total Bilirubin 0.7 mg/dL (0.2-1.0) Aspartate Amino Transf (AST/SGOT) 19 U/L (15-37) Alanine Aminotransferase (ALT/SGPT) 38 U/L (16-63) Alkaline Phosphatase 71 U/L (46-116) Total Protein 7.9 g/dL (6.4-8.2) Albumin 4.4 g/dL (3.4-5.0) Albumin/Globulin Ratio 1.3 (1.0-1.7) Lipase 99 U/L (73-393) Laboratory Tests Test 07/09/17 04:00 07/09/17 04:20 White Blood Count 11.2 x10^3/uL (4.0-11.0) Red Blood Count 3.37 x10^6/uL (4.30-5.70) Hemoglobin 9.9 g/dL (13.0-17.5) Hematocrit 29.7 % (39.0-53.0) Mean Corpuscular Volume 88 fL (79-100) Mean Corpuscular Hemoglobin 29 pg (25-35) Mean Corpuscular Hemoglobin Concent 33 g/dL (31-37) Red Cell Distribution Width 13.6 % (11.5-14.5) Platelet Count 222 x10^3/uL (140-400) Neutrophils (%) (Auto) 70 % (31-73) Lymphocytes (%) (Auto) 20 % (24-48) Monocytes (%) (Auto) 9 % (0-9) Eosinophils (%) (Auto) 0 % (0-3) Basophils (%) (Auto) 0 % (0-3) Neutrophils # (Auto) 7.8 x10^3uL (1.8-7.7) Lymphocytes # (Auto) 2.3 x10^3/uL (1.0-4.8) Monocytes # (Auto) 1.0 x10^3/uL (0.0-1.1) Eosinophils # (Auto) 0.0 x10^3/uL (0.0-0.7) Basophils # (Auto) 0.0 x10^3/uL (0.0-0.2) Sodium Level 139 mmol/L (136-145) Potassium Level 3.5 mmol/L (3.5-5.1) Chloride Level 105 mmol/L (98-107) Carbon Dioxide Level 27 mmol/L (21-32) Anion Gap 7 (6-14) Blood Urea Nitrogen 9 mg/dL (8-26) Creatinine 0.8 mg/dL (0.7-1.3) Estimated GFR (Cockcroft-Gault) 119.8 Glucose Level 109 mg/dL (70-99) Calcium Level 8.2 mg/dL (8.5-10.1) Medications Current Medications Ondansetron HCl (Zofran Odt) 8 mg 1X ONCE PO ; Start 07/08/17 at 02:15; Stop 07/08/17 at 02:16; Status Cancel Multi-Ingredient Mouthwash/Gargle (Gi Cocktail Single Dose) 15 ml 1X ONCE SWSW Last administered on 07/08/17 02:55; Start 07/08/17 at 02:30; Stop 07/08/17 at 02:31; Status DC Ondansetron HCl (Zofran) 4 mg STK-MED ONCE .ROUTE ; Start 07/08/17 at 02:31; Stop 07/08/17 at 02:32; Status DC Multi-Ingredient Mouthwash/Gargle (Gi Cocktail Single Dose) 15 ml 1X ONCE SWSW ; Start 07/08/17 at 02:45; Stop 07/08/17 at 02:46; Status DC Sodium Chloride 1,000 ml @ 1,000 mls/hr Q1H IV Last administered on 07/08/17 02:38; Start 07/08/17 at 02:45; Stop 07/08/17 at 03:44; Status DC Ondansetron HCl (Zofran) 4 mg 1X ONCE IV Last administered on 07/08/17 02:39 ; Start 07/08/17 at 02:45; Stop 07/08/17 at 02:46; Status DC Fentanyl Citrate (Fentanyl 2ml Vial) 50 mcg PRN Q15MIN PRN IV PAIN GREATER THAN 3/10 Last administered on 07/08/17 05:49; Start 07/08/17 at 02:45; Stop 07/08/17 at 14:35; Status DC Iohexol (Omnipaque 300 Mg/ml) 75 ml 1X ONCE IV Last administered on 07/08/17 04:30; Start 07/08/17 at 04:15; Stop 07/08/17 at 04:16; Status DC Info (Do NOT chart on this entry -- for MONITORING) 1 each PRN DAILY PRN MC SEE COMMENTS; Start 07/08/17 at 04:15; Stop 07/10/17 at 04:14 Ondansetron HCl (Zofran) 4 mg PRN Q8HRS PRN IV NAUSEA/VOMITING; Start 07/08/17 at 06:45; Stop 07/09/17 at 06:44; Status DC Fentanyl Citrate (Fentanyl 2ml Vial) 50 mcg PRN Q2HR PRN IV PAIN; Start at 06:45; Stop 07/08/17 at 14:35; Status DC Sodium Chloride 1,000 ml @ 125 mls/hr Q8H IV Last administered on 07/08/17t 18 :29; Start 07/08/17 at 06:45; Stop 07/09/17 at 06:44; Status DC Midazolam HCl (Versed) 2 mg PRN 1X PRN IV PRIOR TO PROCEDURE; Start 07/08/17 at 08:15; Stop 07/09/17 at 08:14; Status DC Fentanyl Citrate (Fentanyl 2ml Vial) 25 mcg PRN Q5MIN PRN IV X 2 DOSES FOR PAIN ; Start 07/08/17 at 08:15; Stop 07/08/17 at 14:35; Status DC Fentanyl Citrate (Fentanyl 2ml Vial) 50 mcg PRN Q5MIN PRN IV X 2 DOSES FOR PAIN Last administered on 07/08/17t 08:20; Start 07/08/17 at 08:15; Stop at 14:35; Status DC Ringer's Solution 1,000 ml @ 125 mls/hr Q8H IV ; Start 07/08/17 at 08:15; Stop 07/08/17 at 20:14; Status DC Lidocaine HCl (Xylocaine-Mpf 1% Vial) 2 ml 1X PRN PRN ID IV START; Start at 08:15; Stop 07/09/17 at 08:14; Status DC Ondansetron HCl (Zofran) 4 mg PRN Q6HRS PRN IV NAUSEA/VOMITING; Start 07/08/17 at 08:15; Stop 07/08/17 at 14:36; Status DC Fentanyl Citrate (Fentanyl 2ml Vial) 25 mcg PRN Q5MIN PRN IV MILD PAIN; Start 07/08/17 at 08:15; Stop 07/09/17 at 08:14; Status DC Fentanyl Citrate (Fentanyl 2ml Vial) 50 mcg PRN Q5MIN PRN IV MODERATE PAIN; Start 07/08/17 at 08:15; Stop 07/09/17 at 08:14; Status DC Morphine Sulfate 1 mg PRN Q10MIN PRN IV SEVERE PAIN; Start 07/08/17 at 08:15; Stop 07/09/17 at 08:14; Status DC Ringer's Solution 1,000 ml @ 30 mls/hr Q24H IV ; Start 07/08/17 at 08:15; Stop 07/08/17 at 20:14; Status DC Lidocaine HCl (Xylocaine-Mpf 1% Vial) 2 ml 1X PRN PRN ID IV START; Start at 08:15; Stop 07/08/17 at 14:36; Status DC Hydromorphone HCl (Dilaudid) 0.5 mg PRN Q10MIN PRN IV SEV PAIN, Second choice; Start 07/08/17 at 08:15; Stop 07/09/17 at 08:14; Status DC Prochlorperazine Edisylate (Compazine) 5 mg PACU PRN PRN IV NAUSEA, MRX1; Start 07/08/17 at 08:15; Stop 07/09/17 at 08:14; Status DC Fentanyl Citrate (Fentanyl 2ml Vial) 50 mcg PACU PRN PRN IV PAIN; Start at 08:00; Stop 07/08/17 at 14:35; Status DC Piperacillin Sod/ Tazobactam Sod 3.375 gm/Dextrose 50 ml @ 100 mls/hr 1X ONCE IV ; Start 07/08/17 at 08:30; Stop 07/08/17 at 08:59; Status UNV Piperacillin Sod/ Tazobactam Sod (Zosyn) 3.375 gm 1X ONCE IVP Last administered on 07/08/17t 08:32; Start 07/08/17 at 08:30; Stop 07/08/17 at 08:31 ; Status DC Rocuronium [place] (Zemuron) 50 mg STK-MED ONCE .ROUTE ; Start 07/08/17 at 09:03 ; Stop 07/08/17 at 09:04; Status DC Fentanyl Citrate (Fentanyl 2ml Vial) 100 mcg STK-MED ONCE .ROUTE ; Start at 09:04; Stop 07/08/17 at 09:05; Status DC Midazolam HCl (Versed) 2 mg STK-MED ONCE .ROUTE ; Start 07/08/17 at 09:04; Stop 07/08/17 at 09:05; Status DC Sevoflurane (Ultane) 60 ml STK-MED ONCE IH ; Start 07/08/17 at 09:04; Stop 07/08 at 09:05; Status DC Lidocaine HCl (Lidocaine Pf 2% Vial) 5 ml STK-MED ONCE .ROUTE ; Start 07/08/17 at 09:04; Stop 07/08/17 at 09:05; Status DC Propofol 20 ml @ As Directed STK-MED ONCE IV ; Start 07/08/17 at 09:04; Stop at 09:05; Status DC Ondansetron HCl (Zofran) 4 mg STK-MED ONCE .ROUTE ; Start 07/08/17 at 09:04; Stop 07/08/17 at 09:05; Status DC Ketorolac Tromethamine (Toradol For Or Only) 30 mg STK-MED ONCE INJ ; Start 07/08/17 at 09:04; Stop 07/08/17 at 09:05; Status DC Dexamethasone Sodium Phosphate (Decadron) 20 mg STK-MED ONCE .ROUTE ; Start 07/08/17 at 09:04; Stop 07/08/17 at 09:05; Status DC Bupivacaine HCl/ Epinephrine Bitart (Marcaine-Epi 0.25%-1:[id number]) 50 ml STK-MED ONCE .ROUTE Last administered on 07/08/17t 10:04; Start 07/08/17 at 09:38; Stop 07/08/17 at 09:39; Status DC Morphine Sulfate 10 mg STK-MED ONCE .ROUTE ; Start 07/08/17 at 10:12; Stop 07/08 at 10:13; Status DC Oxycodone/ Acetaminophen (Percocet 5/325) 1 tab PRN Q4HRS PRN PO PAIN Last administered on 07/09/17 08:22; Start 07/08/17 at 11:00 Oxycodone/ Acetaminophen (Percocet 5/325) 2 tab PRN Q4HRS PRN PO PAIN Last administered on 07/08/17 20:23; Start 07/08/17 at 11:00 Ondansetron HCl (Zofran) 4 mg PRN Q6HRS PRN IV NAUSEA/VOMITING; Start 07/08/17 at 11:00 Ketorolac Tromethamine (Toradol) 15 mg Q6HRS IV Last administered on 07/08/17 18:29; Start 07/08/17 at 12:00; Stop 07/10/17 at 11:59 Sodium Chloride 500 ml @ 500 mls/hr 1X ONCE IV Last administered on 15:30; Start 07/08/17 at 15:30; Stop 07/08/17 at 16:29; Status DC Vitals/I & O Vital Sign - Last 24 Hours 07/08/17 07/08/17 07/08/17 07/08/17 10:47 10:47 11:02 11:15 Temp 97.1 97.1 Pulse 87 84 Resp 20 22 B/P (MAP) 100/43 98/42 Pulse Ox 100 100 O2 Delivery Mask Simple Mask Simple Mask Room Air O2 Flow Rate 10 10 10 07/08/17 07/08/17 07/08/17 07/08/17 11:17 11:32 11:57 12:00 Temp 98.5 97.9 97.9 98.5 97.9 97.9 Pulse 84 85 89 79 Resp 20 21 18 B/P (MAP) 115/52 116/55 114/46 (68) 117/55 (75) Pulse Ox 99 99 98 98 O2 Delivery Room Air Room Air Room Air Room Air 07/08/17 07/08/17 07/08/17 07/08/17 12:15 12:30 13:00 13:30 Pulse 82 88 88 22 Resp 18 B/P (MAP) 111/57 (75) 114/70 (85) 120/74 (89) 118/62 (80) Pulse Ox 99 99 97 99 O2 Delivery Room Air Room Air Room Air 07/08/17 07/08/17 07/08/17 07/08/17 14:00 14:30 14:37 15:30 Temp 98.0 98.0 Pulse 111 111 110 Resp 20 20 18 B/P (MAP) 108/55 (72) 144/63 (90) 136/60 (85) Pulse Ox 99 98 99 O2 Delivery Room Air Room Air Room Air Room Air 07/08/17 07/08/17 07/08/17 07/08/17 19:05 20:00 20:23 21:49 Temp 98.7 98.7 Pulse 108 Resp 16 B/P (MAP) 118/51 (73) Pulse Ox 98 98 O2 Delivery Room Air Room Air Room Air Room Air 07/08/17 07/09/17 07/09/17 07/09/17 23:27 02:57 03:31 04:03 Temp 98.1 98.2 98.1 98.2 Pulse 104 98 Resp 16 16 B/P (MAP) 119/53 (75) 97/67 (77) Pulse Ox 99 100 100 O2 Delivery Room Air Room Air Room Air Room Air 07/09/17 07/09/17 07:00 08:22 Temp 97.7 97.7 Pulse 98 Resp 18 20 B/P (MAP) 132/60 (84) Pulse Ox 99 99 O2 Delivery Room Air Room Air Intake and Output 07/08/17 07/08/17 07/09/17 15:00 23:00 07:00 Intake Total 1700 ml 600 ml 1000 ml Output Total 1950 ml Balance -250 ml 600 ml 1000 ml PRUDENCE MORRELL MD Jul 09, 2017 09:52
[2017-07-09 10:49] VITALS: BP 143/56
[2017-07-09] MEDS ORDERED: DOCU-109 PO (11:29)
[2017-07-09] MEDS ORDERED: OXYC1TAB7 PO (11:29)
== END 2017-07-09 13:20 | disposition home or self-care (01) | DRG 343 ==
LOC: ER 01:48 → 5 NORTH 05:06
PROVIDERS: ADMIT Internal Medicine; ATTEND Internal Medicine
PROC: 0DTJ4ZZ Resection of Appendix, Percutaneous Endoscopic Approach (ICD-10-PCS; principal; 2017-07-08 09:00)
DX: K35.80 Unspecified acute appendicitis (principal)
CPT/HCPCS: 36415; 74177; 80048; 80053; 83690; 85025; J1100; J1885; J2250; J2270; J2405; J2543; J2704; J3010; J7030; J7040; Q9967; J2001